=== PATIENT | female | born 1945 | race Caucasian/White ===

== ENCOUNTER 2018-10-21 09:42 | Emergency (ER) | payer OTHER, MEDICARE ==
[~2018-10-21] VITALS: Ht 157.5 cm; Wt 71.2 kg
[2018-10-21 09:45] VITALS: BP_SYST 144
--- NOTE | 2018-10-21 09:50 | NUR ---
BROUGHT BACK TO BED #7 AND TRIAGED. REPORT GIVEN TO MADHURI
--- NOTE | 2018-10-21 10:05 | NUR ---
Patient AAOx4, accompanied by daughter to ER complaining of sharp right leg pain 10/10 that does not radiate. Patient reports history of HTN. Patient denies any other complaints of pain. No signs or symptoms of acute distress noted.
--- NOTE | 2018-10-21 10:13 | NUR ---
ER Dr. Mckeon at bedside examining patient.
--- NOTE | 2018-10-21 10:29 | NUR ---
Patient transported to MRI via wheelchair, accompanied by vascular ultrasound technician. No signs or symptoms of acute distress. Patient in stable condition.
--- NOTE | 2018-10-21 12:09 | NUR ---
RETURNED FROM RADIOLOGY MRI AND PLACED BACK TO BED #7, UP TO RESTROOM WITH STEADY GAIT.
--- NOTE | 2018-10-21 14:16 | NUR ---
Patient given written and verbal discharge instructions and verbalizes understanding. ER MD discussed with patient the results and treatment provided. Patient in stable condition. ID arm band removed. Rx of Tramadol Hydrochloride given. Patient educated on pain management and to follow up with PMD. Pain Scale 3/10. Opportunity for questions provided and answered. Medication side effect fact sheet provided.
[2018-10-21 14:17] VITALS: BP_SYST 141
== END 2018-10-21 14:00 | disposition home or self-care (01) ==
LOC: SED 09:42
DX: S83.91XA Sprain of unspecified site of right knee, initial encounter (principal); M54.30 Sciatica, unspecified side; I10 Essential (primary) hypertension; X58.XXXA Exposure to other specified factors, initial encounter; Y93.89 Activity, other specified; Y92.89 Other specified places as the place of occurrence of the external cause; Y99.8 Other external cause status
CPT/HCPCS: 72195; 73721; 99284